=== PATIENT | male | born 1945 | race Caucasian/White ===

== ENCOUNTER 2023-04-16 19:15 | Inpatient (IN) | payer MEDICARE, OTHER ==
[~2023-04-16] VITALS: Ht 172.7 cm; Wt 77.6 kg
[2023-04-16] MEDS ORDERED: AZITHROMYCIN IV 500 MG in IV DEXTROSE 5% 250 ML IV ONE (19:45)
[2023-04-16] MEDS ORDERED: levoFLOXacin 750MG/D5W 150 ML IV ONE ×2 (19:45→20:05)
[2023-04-16] MEDS ORDERED: ACETAMINOPHEN 325 MG TABLET PO ONE (19:45)
[2023-04-16] MEDS ORDERED: IV NORMAL SALINE 1000 ML BAG IV ONE (19:45)
[2023-04-16 20:04] LABS: BASOPHILS # (AUTO) 0.1 K/UL (0.0-0.2); BASOPHILS % (AUTO) 0.4 % (0.0-2.0); EOSINOPHILS # (AUTO) 0.2 K/uL (0.0-0.7); EOSINOPHILS % (AUTO) 1.7 % (0.0-7.0); HEMOGLOBIN 12.5 g/dL (12.5-16.3); LYMPHOCYTES % (AUTO) 8.5 % (20.5-51.5); MEAN CORPUSCULAR HGB CONC 34 g/dL (32.5-36.3); MEAN CORPUSCULAR VOLUME 95.1 fL (73.0-96.2); MONOCYTES # (AUTO) 0.8 K/uL (0.1-1.30); MONOCYTES % (AUTO) 6.5 % (0.0-11.0); NEUTROPHILS # (AUTO) 10.2 K/uL (1.8-8.9); NEUTROPHILS % (AUTO) 82.9 % (38.5-71.5); PLATELET COUNT (AUTO) 172 K/uL (152-348); RED BLOOD CELL COUNT(AUTO) 3.89 MIL/uL (4.06-5.63); RED CELL DISTRIBUTION WIDTH 13.8 % (12.1-16.2); WHITE BLOOD COUNT (AUTO) 12.3 K/uL (3.6-10.2)
[2023-04-16] MEDS ORDERED: ACETAMINOPHEN ES 500 MG TABLET ONE (20:05)
[2023-04-16] MEDS ORDERED: AZITHROMYCIN 500MG/ D5W 250ML IVPB **ER PYXIS ONLY IV ONE (20:05)
[2023-04-16 20:10] LABS: DIFFERENTIAL COMMENT 1
[2023-04-16 20:27] LABS: ALANINE AMINOTRANSFERASE 46 U/L (16-63); ALBUMIN 4.1 g/dL (3.4-5.0); ALKALINE PHOSPHATASE 59 U/L (50-136); ASPARTATE AMINOTRANSFERASE 22 U/L (15-37); BILIRUBIN,DIRECT 0.2 mg/dL (0.0-0.2); BILIRUBIN,TOTAL 0.7 mg/dL (0.2-1.0); CARBON DIOXIDE 24 mmol/L (21-32); CHLORIDE 102 mmol/L (98-107); CREATININE 3.5 mg/dL (0.6-1.3); GLUCOSE 97 mg/dL (74-106); POTASSIUM 5.9 mmol/L (3.5-5.1); SODIUM SERUM 139 mmol/L (136-145); TOTAL PROTEIN, SERUM 8.1 g/dL (6.4-8.2); UREA NITROGEN, BLOOD 51 mg/dL (7-18)
[2023-04-16 20:33] LABS: CALCIUM 9.1 mg/dL (8.5-10.1)
[2023-04-16 20:59] LABS: *BILIRUBIN,URIN NEGATIVE (NEGATIVE); *CLARITY,URINE CLEAR (CLEAR); *COLOR,URINE YELLOW (YELLOW); *KETONES,URINE NEGATIVE (NEGATIVE); *PROTEIN,URINE NEGATIVE (NEGATIVE); *UROBILINOGEN,URINE 0.2 E.U./dl (NORMAL); LEUKOCYTE ESTERASE ,URINE NEGATIVE (NEGATIVE); NITRITE, URINE NEGATIVE (NEGATIVE); UGLUCOSE TRACE (NEGATIVE)
[2023-04-16] MEDS ORDERED: ALBUTEROL SULFATE 2.5 MG/3 ML NEBU NEB ONE (21:00)
[2023-04-16] MEDS ORDERED: SODIUM POLYSTYRENE SULFONATE 15 G/60 ML LIQUID UDC PO ONE (21:00)
[2023-04-16] MEDS ORDERED: SODIUM BICARBONATE 8.4% 50 MEQ/50 ML DISP.SYRIN IV ONE ×2 (21:00→21:10)
[2023-04-16 21:06] LABS: *BLOOD, URINE TRACE (NEGATIVE)
[2023-04-16] MEDS ORDERED: ALBUTEROL SULFATE 2.5 MG/3 ML NEBU ONE (21:07)
[2023-04-16 21:10] VITALS: O2SAT 97
[2023-04-16] MEDS ORDERED: SODIUM POLYSTYRENE SULFONATE 15 G/60 ML LIQUID UDC ONE (21:10)
[2023-04-16 21:19] LABS: BACTERIA,URINE NONE SEEN /HPF (NONE SEEN); SQUAMOUS EPITHELIAL CELL,UR FEW /HPF (NONE SEEN); WBC,URINE 0-3 /HPF (0-3)
[2023-04-16] MEDS ORDERED: LEVO112T2 PO (21:24)
[2023-04-16] MEDS ORDERED: ASPI81TA31 PO (21:24)
[2023-04-16] MEDS ORDERED: CARV6.252 PO (21:24)
[2023-04-16] MEDS ORDERED: MAGN400C PO (21:24)
[2023-04-16] MEDS ORDERED: DAPA5TAB PO (21:24)
[2023-04-16] MEDS ORDERED: SACU1TAB4 PO (21:24)
[2023-04-16] MEDS ORDERED: SPIR25TA6 PO (21:24)
[2023-04-16] MEDS ORDERED: SITA1TAB6 PO (21:24)
[2023-04-16] MEDS ORDERED: TADA5TAB2 PO (21:24)
[2023-04-16] MEDS ORDERED: VERQUVO PO (21:24)
[2023-04-16] MEDS ORDERED: AMIO200T5 PO (21:24)
[2023-04-16] MEDS ORDERED: FURO40TA5 PO (21:24)
[2023-04-16 21:40] VITALS: O2SAT 98
[2023-04-16 22:10] VITALS: O2SAT 99
[2023-04-16] MEDS ORDERED: REMEDY ESSENTIAL ZINC PASTE 113 GM TP PRN (23:45)
[2023-04-16] MEDS ORDERED: CEFTRIAXONE 1 G in IV DEXTROSE 5% 50 ML IV SCH (23:45)
[2023-04-16] MEDS ORDERED: ACETAMINOPHEN 325 MG TABLET PO PRN (23:45)
[2023-04-16] MEDS ORDERED: ONDANSETRON 4 MG/2 ML VIAL IV PRN (23:45)
[2023-04-17 00:30] VITALS: BP 88/50; TEMP 97.8
[2023-04-17] MEDS: ENOXAPARIN SODIUM 30 MG/0.3 ML DISP.SYRIN SQ SCH ×2 (01:26→21:18)
[2023-04-17] MEDS ORDERED: CEFTRIAXONE /D5W 50ML IVPB **ER PYXIS IV ONE (01:40)
[2023-04-17 04:00] VITALS: BP 95/45; TEMP 98.5
[2023-04-17] MEDS: PANTOPRAZOLE SODIUM 40 MG TABLET.DR PO SCH (06:25)
[2023-04-17] MEDS: LEVOTHYROXINE SODIUM 112 MCG TABLET PO SCH (06:26)
[2023-04-17 06:55] LABS: BASOPHILS % (AUTO) 0.2 % (0.0-2.0); EOSINOPHILS % (AUTO) 0.3 % (0.0-7.0); HEMATOCRIT 28.8 % (36.7-47.1); HEMOGLOBIN 9.8 g/dL (12.5-16.3); LYMPHOCYTES # (AUTO) 1.8 K/uL (0.8-4.8); LYMPHOCYTES % (AUTO) 12.7 % (20.5-51.5); MEAN CORPUSCULAR HEMOGLOBIN 32.5 uug (23.8-33.4); MEAN CORPUSCULAR HGB CONC 34 g/dL (32.5-36.3); MEAN CORPUSCULAR VOLUME 95.1 fL (73.0-96.2); MONOCYTES # (AUTO) 1.3 K/uL (0.1-1.30); MONOCYTES % (AUTO) 8.8 % (0.0-11.0); NEUTROPHILS # (AUTO) 11.1 K/uL (1.8-8.9); PLATELET COUNT (AUTO) 133 K/uL (152-348); RED BLOOD CELL COUNT(AUTO) 3.02 MIL/uL (4.06-5.63); RED CELL DISTRIBUTION WIDTH 13.8 % (12.1-16.2); WHITE BLOOD COUNT (AUTO) 14.3 K/uL (3.6-10.2)
[2023-04-17] MEDS ORDERED: FUROSEMIDE 40 MG TABLET PO ONE (07:00)
[2023-04-17 07:05] LABS: DIFFERENTIAL COMMENT 1
[2023-04-17 07:12] LABS: ALANINE AMINOTRANSFERASE 28 U/L (16-63); ALBUMIN 2.9 g/dL (3.4-5.0); ALKALINE PHOSPHATASE 38 U/L (50-136); ASPARTATE AMINOTRANSFERASE 5 U/L (15-37); BILIRUBIN,TOTAL 0.6 mg/dL (0.2-1.0); CALCIUM 8.3 mg/dL (8.5-10.1); CARBON DIOXIDE 23 mmol/L (21-32); CHLORIDE 108 mmol/L (98-107); CREATININE 3.2 mg/dL (0.6-1.3); GLUCOSE 102 mg/dL (74-106); PHOSPHOROUS 3.8 mg/dL (2.5-4.9); POTASSIUM 4.8 mmol/L (3.5-5.1); SODIUM SERUM 141 mmol/L (136-145); TOTAL PROTEIN, SERUM 5.9 g/dL (6.4-8.2); UREA NITROGEN, BLOOD 49 mg/dL (7-18)
[2023-04-17] MEDS ORDERED: FUROSEMIDE 40 MG TABLET PO SCH ×2 (09:00)
[2023-04-17] MEDS ORDERED: SACUBITRIL PO SCH (09:00)
[2023-04-17] MEDS ORDERED: VALSARTAN PO SCH (09:00)
[2023-04-17] MEDS ORDERED: METFORMIN HCL 500 MG TABLET PO SCH ×2 (09:00)
[2023-04-17] MEDS ORDERED: IV NORMAL SALINE 500 ML IV ONE (09:30)
[2023-04-17] MEDS ORDERED: SACUBITRIL/VALSARTAN 24 MG-26 TABLET PO ONE (09:30)
[2023-04-17] MEDS: ASPIRIN 81 MG TAB.CHEW PO SCH (09:40)
[2023-04-17] MEDS: CARVEDILOL 6.25 MG TABLET PO SCH ×2 (09:48→17:10)
[2023-04-17] MEDS: OFLOXACIN 0.3% OTIC DROP 5 ML BOTTLE RIGHT EAR SCH ×2 (09:49→21:16)
[2023-04-17 11:54] VITALS: BP 130/47; TEMP 98.4; O2SAT 94
[2023-04-17] MEDS ORDERED: DEXTROSE 50% 50 ML DISP.SYRIN IV PRN (13:30)
[2023-04-17] MEDS ORDERED: INSULIN REGULAR, HUMAN 300 UNIT/3 ML VIAL SQ PRN (13:30)
[2023-04-17 15:05] VITALS: BP 117/48; TEMP 98.4; O2SAT 93
[2023-04-17] MEDS: BLOOD SUGAR DIAGNOSTIC 1 EACH STRIP VI SCH ×2 (16:08→21:19)
[2023-04-17 20:00] VITALS: BP 128/54; TEMP 98.4; O2SAT 97
[2023-04-17] MEDS: AMIODARONE HCL 200 MG TABLET PO SCH (21:16)
[2023-04-18] VITALS: BP 145/65; TEMP 98.8; O2SAT 95
[2023-04-18] MEDS ORDERED: TEMAZEPAM 7.5 MG CAPSULE PO PRN (01:00)
[2023-04-18] MEDS: CEFTRIAXONE 1 G in IV DEXTROSE 5% 50 ML IV SCH (02:16)
[2023-04-18 04:00] VITALS: BP 119/59; TEMP 98.1; O2SAT 97
[2023-04-18] MEDS: LEVOTHYROXINE SODIUM 112 MCG TABLET PO SCH (06:11)
[2023-04-18] MEDS: PANTOPRAZOLE SODIUM 40 MG TABLET.DR PO SCH (06:11)
[2023-04-18] MEDS ORDERED: DEXTROSE 50% 50 ML DISP.SYRIN IV PRN (06:15)
[2023-04-18] MEDS ORDERED: INSULIN REGULAR, HUMAN 300 UNIT/3 ML VIAL SQ PRN (06:15)
[2023-04-18 06:23] LABS: *BILIRUBIN,URIN NEGATIVE (NEGATIVE); *CLARITY,URINE CLEAR (CLEAR); *COLOR,URINE YELLOW (YELLOW); *KETONES,URINE NEGATIVE (NEGATIVE); *PROTEIN,URINE 1+ (NEGATIVE); *UROBILINOGEN,URINE 0.2 E.U./dl (NORMAL); LEUKOCYTE ESTERASE ,URINE NEGATIVE (NEGATIVE); NITRITE, URINE NEGATIVE (NEGATIVE); UGLUCOSE NEGATIVE (NEGATIVE)
[2023-04-18] MEDS: BLOOD SUGAR DIAGNOSTIC 1 EACH STRIP VI SCH ×6 (06:31→20:53)
[2023-04-18 06:32] LABS: *BLOOD, URINE TRACE (NEGATIVE)
[2023-04-18 06:35] LABS: *CREATININE,URINE 99.2 mg/dL (30-125); *URINE TOTAL PROTEIN RANDOM 33.1 mg/dL (<150/24HR)
[2023-04-18 06:53] LABS: BASOPHILS % (AUTO) 0.5 % (0.0-2.0); EOSINOPHILS # (AUTO) 0.4 K/uL (0.0-0.7); HEMATOCRIT 30.3 % (36.7-47.1); HEMOGLOBIN 10.4 g/dL (12.5-16.3); LYMPHOCYTES # (AUTO) 1.7 K/uL (0.8-4.8); LYMPHOCYTES % (AUTO) 20.1 % (20.5-51.5); MEAN CORPUSCULAR HEMOGLOBIN 32.9 uug (23.8-33.4); MEAN CORPUSCULAR HGB CONC 34 g/dL (32.5-36.3); MEAN CORPUSCULAR VOLUME 95.8 fL (73.0-96.2); MONOCYTES # (AUTO) 0.7 K/uL (0.1-1.30); MONOCYTES % (AUTO) 8.4 % (0.0-11.0); NEUTROPHILS # (AUTO) 5.7 K/uL (1.8-8.9); PLATELET COUNT (AUTO) 140 K/uL (152-348); RED BLOOD CELL COUNT(AUTO) 3.16 MIL/uL (4.06-5.63); RED CELL DISTRIBUTION WIDTH 14.4 % (12.1-16.2); WHITE BLOOD COUNT (AUTO) 8.6 K/uL (3.6-10.2)
[2023-04-18 06:54] LABS: DIFFERENTIAL COMMENT 1
[2023-04-18 07:29] LABS: RBC,URINE 0-3 /HPF (0-3); WBC,URINE NONE SEEN /HPF (0-3)
[2023-04-18 09:09] LABS: ALANINE AMINOTRANSFERASE 35 U/L (16-63); ALBUMIN 2.9 g/dL (3.4-5.0); ALKALINE PHOSPHATASE 40 U/L (50-136); ASPARTATE AMINOTRANSFERASE 19 U/L (15-37); BILIRUBIN,TOTAL 0.5 mg/dL (0.2-1.0); CALCIUM 8.7 mg/dL (8.5-10.1); CARBON DIOXIDE 25 mmol/L (21-32); CHLORIDE 109 mmol/L (98-107); CREATINE KINASE, TOTAL 89 U/L (39-308); GLUCOSE 94 mg/dL (74-106); MAGNESIUM 1.9 mg/dL (1.8-2.4); PHOSPHOROUS 3.5 mg/dL (2.5-4.9); POTASSIUM 4.7 mmol/L (3.5-5.1); SODIUM SERUM 143 mmol/L (136-145); UREA NITROGEN, BLOOD 41 mg/dL (7-18)
[2023-04-18 09:11] LABS: IRON, SERUM 38 ug/dL (50-175)
[2023-04-18] MEDS: ASPIRIN 81 MG TAB.CHEW PO SCH (09:27)
[2023-04-18] MEDS: CARVEDILOL 6.25 MG TABLET PO SCH ×2 (09:29→17:39)
[2023-04-18 09:46] LABS: THYROID STIMULATING HORMONE 4.957 mIU/mL (0.358-3.740)
[2023-04-18] MEDS: OFLOXACIN 0.3% OTIC DROP 5 ML BOTTLE RIGHT EAR SCH ×2 (10:37→21:00)
[2023-04-18 11:19] VITALS: BP 122/57; TEMP 97.8; O2SAT 100
[2023-04-18] MEDS ORDERED: AZITHROMYCIN 250 MG TABLET PO SCH (12:30)
[2023-04-18] MEDS: DOXYCYCLINE HYCLATE 100 MG TABLET PO SCH ×2 (14:09→20:53)
[2023-04-18 15:00] VITALS: BP 116/45; TEMP 98.2; O2SAT 96
[2023-04-18 20:00] VITALS: BP_SYST 119; BP_SYST 144; BP_DIAS 59; BP_DIAS 68; TEMP 98.1; TEMP 98.5; O2SAT 96; O2SAT 97
[2023-04-18] MEDS: AMIODARONE HCL 200 MG TABLET PO SCH (20:53)
[2023-04-18] MEDS: ENOXAPARIN SODIUM 30 MG/0.3 ML DISP.SYRIN SQ SCH (20:59)
[2023-04-19] VITALS: BP 138/61; TEMP 98; O2SAT 98
[2023-04-19] MEDS: CEFTRIAXONE 1 G in IV DEXTROSE 5% 50 ML IV SCH (01:09)
[2023-04-19 04:00] VITALS: BP 143/65; TEMP 98.3; O2SAT 96
[2023-04-19 05:08] LABS: PTH, INTACT 56 pg/mL (15-65)
[2023-04-19] MEDS: LEVOTHYROXINE SODIUM 112 MCG TABLET PO SCH (06:06)
[2023-04-19] MEDS: PANTOPRAZOLE SODIUM 40 MG TABLET.DR PO SCH (06:06)
[2023-04-19] MEDS: BLOOD SUGAR DIAGNOSTIC 1 EACH STRIP VI SCH ×3 (06:32→11:50)
[2023-04-19 06:42] LABS: BASOPHILS # (AUTO) 0.1 K/UL (0.0-0.2); BASOPHILS % (AUTO) 1.8 % (0.0-2.0); EOSINOPHILS # (AUTO) 0.5 K/uL (0.0-0.7); EOSINOPHILS % (AUTO) 6.9 % (0.0-7.0); HEMOGLOBIN 10.3 g/dL (12.5-16.3); LYMPHOCYTES # (AUTO) 1.7 K/uL (0.8-4.8); MEAN CORPUSCULAR HEMOGLOBIN 32.5 uug (23.8-33.4); MEAN CORPUSCULAR HGB CONC 34 g/dL (32.5-36.3); MEAN CORPUSCULAR VOLUME 94.6 fL (73.0-96.2); MONOCYTES # (AUTO) 0.5 K/uL (0.1-1.30); MONOCYTES % (AUTO) 7.3 % (0.0-11.0); NEUTROPHILS # (AUTO) 4.3 K/uL (1.8-8.9); PLATELET COUNT (AUTO) 157 K/uL (152-348); RED BLOOD CELL COUNT(AUTO) 3.17 MIL/uL (4.06-5.63); RED CELL DISTRIBUTION WIDTH 13.7 % (12.1-16.2); WHITE BLOOD COUNT (AUTO) 7.2 K/uL (3.6-10.2)
[2023-04-19 06:43] LABS: DIFFERENTIAL COMMENT 1
[2023-04-19 07:16] LABS: CALCIUM 8.2 mg/dL (8.5-10.1); CARBON DIOXIDE 23 mmol/L (21-32); CHLORIDE 109 mmol/L (98-107); CREATININE 2.3 mg/dL (0.6-1.3); GLUCOSE 103 mg/dL (74-106); MAGNESIUM 1.7 mg/dL (1.8-2.4); PHOSPHOROUS 3.6 mg/dL (2.5-4.9); POTASSIUM 4.8 mmol/L (3.5-5.1); SODIUM SERUM 138 mmol/L (136-145); UREA NITROGEN, BLOOD 36 mg/dL (7-18)
[2023-04-19] MEDS: ASPIRIN 81 MG TAB.CHEW PO SCH (09:31)
[2023-04-19] MEDS: DOXYCYCLINE HYCLATE 100 MG TABLET PO SCH (09:31)
[2023-04-19] MEDS: CARVEDILOL 6.25 MG TABLET PO SCH (09:32)
[2023-04-19] MEDS: OFLOXACIN 0.3% OTIC DROP 5 ML BOTTLE RIGHT EAR SCH (09:36)
[2023-04-19] MEDS ORDERED: MAGNESIUM OXIDE 400 MG TABLET PO ONE (10:30)
[2023-04-19 11:24] VITALS: BP 144/75; TEMP 97.8; O2SAT 97
[2023-04-19] MEDS ORDERED: DAPA10TA PO (12:43)
[2023-04-19] MEDS ORDERED: DOXY100T2 PO (12:43)
[2023-04-19] MEDS ORDERED: CARV12.5 PO (12:43)
[2023-04-19 13:06] LABS: A/G RATIO 1.3 (0.7-1.7); ALBUMIN 3.1 g/dL (2.9-4.4); ALPHA-1-GLOBULIN 0.2 g/dL (0.0-0.4); ALPHA-2-GLOBULIN 0.8 g/dL (0.4-1.0); BETA GLOBULIN 0.6 g/dL (0.7-1.3); GAMMA GLOBULIN 0.6 g/dL (0.4-1.8); GLOBULIN, TOTAL 2.3 g/dL (2.2-3.9); M-SPIKE Not Observed g/dL (Not Observed)
== END 2023-04-19 14:00 | disposition home or self-care (01) | DRG 871 ==
LOC: ER 19:22 → TELE3 21:32 → MEDSURG3 04-19 11:24
PROVIDERS: ADMIT Nurse Practitioner Acute Care; ATTEND Nurse Practitioner Acute Care
DX: A41.9 Sepsis, unspecified organism (principal); I21.A1 Myocardial infarction type 2; J15.9 Unspecified bacterial pneumonia; N17.0 Acute kidney failure with tubular necrosis; K92.2 Gastrointestinal hemorrhage, unspecified; I50.22 Chronic systolic (congestive) heart failure; J44.0 Chronic obstructive pulmonary disease with (acute) lower respiratory infection; I13.0 Hypertensive heart and chronic kidney disease with heart failure and stage 1 through stage 4 chronic kidney disease, or unspecified chronic kidney disease; I42.8 Other cardiomyopathies; E87.5 Hyperkalemia; B34.9 Viral infection, unspecified; E11.22 Type 2 diabetes mellitus with diabetic chronic kidney disease; E03.9 Hypothyroidism, unspecified; E78.5 Hyperlipidemia, unspecified; I48.0 Paroxysmal atrial fibrillation; Z20.822 Contact with and (suspected) exposure to COVID-19; Z79.01 Long term (current) use of anticoagulants; Z79.4 Long term (current) use of insulin; Z79.84 Long term (current) use of oral hypoglycemic drugs; Z87.891 Personal history of nicotine dependence; Z95.810 Presence of automatic (implantable) cardiac defibrillator; I25.10 Atherosclerotic heart disease of native coronary artery without angina pectoris; N18.9 Chronic kidney disease, unspecified; K80.20 Calculus of gallbladder without cholecystitis without obstruction; N20.0 Calculus of kidney; T46.2X5A Adverse effect of other antidysrhythmic drugs, initial encounter; Y92.009 Unspecified place in unspecified non-institutional (private) residence as the place of occurrence of the external cause
CPT/HCPCS: 36415; 71045; 76770; 83550; 83605; 83735; 83970; 84100; 84155; 84165; 84300; 84443; 84484; 85025; 85730; 87040; 93005; 93307; A9150; G0378; J0456; J0696; J1650; J1815; J1956; J2405; J3490; J7040

== ENCOUNTER 2024-09-16 20:05 | Inpatient (IN) | payer MEDICARE, OTHER ==
[~2024-09-16] VITALS: Ht 172.7 cm; Wt 81.0 kg
[~2024-09-16 20:05] MED LIST: CARV12.5 PO; DAPA10TA PO; DOXY100T2 PO; FURO40TA5 PO; LEVO112T2 PO; MAGN400C PO; SACU1TAB4 PO; SITA1TAB6 PO; TADA5TAB2 PO; VERQUVO PO
[2024-09-16] MEDS ORDERED: FUROSEMIDE 40 MG/4 ML VIAL ONE (20:26)
[2024-09-16] MEDS: FUROSEMIDE 20 MG/2 ML VIAL IVP ONE (20:30)
[2024-09-16] MEDS ORDERED: NITROGLYCERIN IV 250 ML IV ONE (20:30)
[2024-09-16] MEDS: MORPHINE SULFATE 2 MG/1 ML DISP.SYRIN IV ONE (20:30)
[2024-09-16] MEDS: NITROGLYCERIN OINT 1 GM PACKET TP ONE (20:45)
[2024-09-16] MEDS: AZITHROMYCIN IV 500 MG in IV DEXTROSE 5% 250 ML IV ONE (20:45)
[2024-09-16] MEDS ORDERED: levoFLOXacin 750 MG/D5W 150 ML PIGGYBACK IV ONE (20:45)
[2024-09-16] MEDS ORDERED: NITROGLYCERIN ONE (20:46)
[2024-09-16] MEDS ORDERED: MORPHINE SULFATE 2 MG/1 ML DISP.SYRIN ONE (20:47)
[2024-09-16 20:49] LABS: BASOPHILS # (AUTO) 0.1 K/UL (0.0-0.2); BASOPHILS % (AUTO) 0.9 % (0.0-2.0); EOSINOPHILS # (AUTO) 0.4 K/uL (0.0-0.7); EOSINOPHILS % (AUTO) 4.7 % (0.0-7.0); HEMOGLOBIN 13.9 g/dL (12.5-16.3); LYMPHOCYTES # (AUTO) 2.1 K/uL (0.8-4.8); LYMPHOCYTES % (AUTO) 27.4 % (20.5-51.5); MEAN CORPUSCULAR HEMOGLOBIN 30.3 uug (23.8-33.4); MEAN CORPUSCULAR HGB CONC 33 g/dL (32.5-36.3); MEAN CORPUSCULAR VOLUME 91.7 fL (73.0-96.2); MONOCYTES # (AUTO) 0.5 K/uL (0.1-1.30); MONOCYTES % (AUTO) 7.1 % (0.0-11.0); NEUTROPHILS # (AUTO) 4.5 K/uL (1.8-8.9); NEUTROPHILS % (AUTO) 59.9 % (38.5-71.5); PLATELET COUNT (AUTO) 171 K/uL (152-348); RED BLOOD CELL COUNT(AUTO) 4.58 MIL/uL (4.06-5.63); RED CELL DISTRIBUTION WIDTH 15.2 % (12.1-16.2); WHITE BLOOD COUNT (AUTO) 7.6 K/uL (3.6-10.2)
[2024-09-16 20:53] LABS: DIFFERENTIAL COMMENT 1
[2024-09-16] MEDS ORDERED: NITROGLYCERIN OINT 1 GM PACKET TP ONE (20:53)
[2024-09-16 20:57] LABS: CALCIUM 8.6 mg/dL (8.5-10.1); CARBON DIOXIDE 26 mmol/L (21-32); CHLORIDE 107 mmol/L (98-107); CREATININE 1.6 mg/dL (0.6-1.3); GLUCOSE 141 mg/dL (74-106); POTASSIUM 3.7 mmol/L (3.5-5.1); SODIUM SERUM 145 mmol/L (136-145); UREA NITROGEN, BLOOD 22 mg/dL (7-18)
[2024-09-16 21:10] LABS: ALANINE AMINOTRANSFERASE 26 U/L (16-63); ALBUMIN 3.4 g/dL (3.4-5.0); ALKALINE PHOSPHATASE 88 U/L (50-136); ASPARTATE AMINOTRANSFERASE 14 U/L (15-37); BILIRUBIN,DIRECT 0.2 mg/dL (0.0-0.2); BILIRUBIN,TOTAL 0.8 mg/dL (0.2-1.0); NT-PRO BNP 7787 pg/mL (0-125)
[2024-09-16] MEDS ORDERED: AZITHROMYCIN 500MG/ D5W 250ML IVPB **ER PYXIS ONLY IV ONE (21:30)
[2024-09-16 23:30] LABS: *BILIRUBIN,URIN NEGATIVE (NEGATIVE); *BLOOD, URINE NEGATIVE (NEGATIVE); *CLARITY,URINE CLEAR (CLEAR); *COLOR,URINE YELLOW (YELLOW); *KETONES,URINE NEGATIVE (NEGATIVE); *UROBILINOGEN,URINE 0.2 E.U./dl (NORMAL); LEUKOCYTE ESTERASE ,URINE NEGATIVE (NEGATIVE); NITRITE, URINE NEGATIVE (NEGATIVE); PH,URINE 5.5 (5.0-8.0)
[2024-09-16 23:33] LABS: UGLUCOSE 2+ (NEGATIVE)
[2024-09-16 23:52] LABS: *PROTEIN,URINE 1+ (NEGATIVE)
[2024-09-16 23:58] LABS: BACTERIA,URINE NONE SEEN /HPF (NONE SEEN); RBC,URINE 0-3 /HPF (0-3); WBC,URINE NONE SEEN /HPF (0-3)
[2024-09-16 23:59] LABS: SQUAMOUS EPITHELIAL CELL,UR FEW /HPF (NONE SEEN)
[2024-09-17] VITALS (8 sets, daily range): BP systolic 122–146; BP diastolic 60–76; TEMP 97.1–97.9; O2SAT 91–100
[2024-09-17] MEDS ORDERED: MAGNESIUM HYDROXIDE 30 ML LIQUID UDC PO PRN
[2024-09-17] MEDS ORDERED: AZTREONAM 1 G VIAL ONE (03:02)
[2024-09-17] MEDS: AZTREONAM 1 G in IV NORMAL SALINE 50 ML IV SCH (03:58)
[2024-09-17] MEDS: FUROSEMIDE 40 MG/4 ML VIAL IV ONE ×3 (05:00→12:32)
[2024-09-17] MEDS ORDERED: LEVOTHYROXINE SODIUM 112 MCG TABLET PO SCH ×2 (07:00→09:00)
[2024-09-17 07:27] LABS: BASOPHILS # (AUTO) 0.1 K/UL (0.0-0.2); EOSINOPHILS # (AUTO) 0.3 K/uL (0.0-0.7); EOSINOPHILS % (AUTO) 4.5 % (0.0-7.0); HEMATOCRIT 36.2 % (36.7-47.1); HEMOGLOBIN 12.4 g/dL (12.5-16.3); LYMPHOCYTES # (AUTO) 1.8 K/uL (0.8-4.8); MEAN CORPUSCULAR HEMOGLOBIN 31.2 uug (23.8-33.4); MEAN CORPUSCULAR HGB CONC 34 g/dL (32.5-36.3); MEAN CORPUSCULAR VOLUME 91.1 fL (73.0-96.2); MONOCYTES # (AUTO) 0.5 K/uL (0.1-1.30); MONOCYTES % (AUTO) 8.4 % (0.0-11.0); NEUTROPHILS # (AUTO) 3.1 K/uL (1.8-8.9); NEUTROPHILS % (AUTO) 54.1 % (38.5-71.5); PLATELET COUNT (AUTO) 132 K/uL (152-348); RED BLOOD CELL COUNT(AUTO) 3.97 MIL/uL (4.06-5.63); RED CELL DISTRIBUTION WIDTH 14.9 % (12.1-16.2); WHITE BLOOD COUNT (AUTO) 5.8 K/uL (3.6-10.2)
[2024-09-17 07:43] LABS: CARBON DIOXIDE 26 mmol/L (21-32); CHLORIDE 112 mmol/L (98-107); CREATININE 1.4 mg/dL (0.6-1.3); GLUCOSE 112 mg/dL (74-106); POTASSIUM 3.5 mmol/L (3.5-5.1); SODIUM SERUM 149 mmol/L (136-145); UREA NITROGEN, BLOOD 22 mg/dL (7-18)
[2024-09-17 07:51] LABS: DIFFERENTIAL COMMENT 1
[2024-09-17] MEDS: DAPAGLIFLOZIN PROPANEDIOL 10 MG TABLET PO SCH (08:47)
[2024-09-17] MEDS: SACUBITRIL/VALSARTAN 24 MG-26 TABLET PO ONE (08:49)
[2024-09-17] MEDS: CARVEDILOL 12.5 MG TABLET PO SCH (08:50)
[2024-09-17] MEDS ORDERED: Sitagliptin Phos/Metformin Hcl (Janumet 50-1,000 Mg Tabl PO SCH (09:00)
[2024-09-17] MEDS ORDERED: Tadalafil (Cialis) 5 MG) PO SCH (09:00)
[2024-09-17] MEDS ORDERED: AZTREONAM 1 G in IV NORMAL SALINE 50 ML IV SCH ×2 (12:00)
[2024-09-17] MEDS: MEROPENEM 1 G in IV NORMAL SALINE 100 ML IV SCH (12:28)
[2024-09-17] MEDS ORDERED: SACUBITRIL PO SCH (17:00)
[2024-09-17] MEDS ORDERED: VALSARTAN PO SCH (17:00)
[2024-09-18] MEDS: FUROSEMIDE 40 MG/4 ML VIAL IV ONE (06:37)
[2024-09-18 07:08] LABS: BASOPHILS # (AUTO) 0.1 K/UL (0.0-0.2); BASOPHILS % (AUTO) 1.5 % (0.0-2.0); EOSINOPHILS # (AUTO) 0.5 K/uL (0.0-0.7); EOSINOPHILS % (AUTO) 6.7 % (0.0-7.0); HEMATOCRIT 38.4 % (36.7-47.1); HEMOGLOBIN 13.2 g/dL (12.5-16.3); LYMPHOCYTES # (AUTO) 2.1 K/uL (0.8-4.8); LYMPHOCYTES % (AUTO) 31.2 % (20.5-51.5); MEAN CORPUSCULAR HGB CONC 34 g/dL (32.5-36.3); MEAN CORPUSCULAR VOLUME 90.2 fL (73.0-96.2); MONOCYTES # (AUTO) 0.7 K/uL (0.1-1.30); MONOCYTES % (AUTO) 9.9 % (0.0-11.0); NEUTROPHILS # (AUTO) 3.5 K/uL (1.8-8.9); NEUTROPHILS % (AUTO) 50.7 % (38.5-71.5); PLATELET COUNT (AUTO) 155 K/uL (152-348); RED BLOOD CELL COUNT(AUTO) 4.26 MIL/uL (4.06-5.63); RED CELL DISTRIBUTION WIDTH 15.1 % (12.1-16.2); WHITE BLOOD COUNT (AUTO) 6.9 K/uL (3.6-10.2)
[2024-09-18 07:18] LABS: DIFFERENTIAL COMMENT 1
[2024-09-18 07:49] LABS: ALANINE AMINOTRANSFERASE 32 U/L (16-63); ALBUMIN 3.1 g/dL (3.4-5.0); ALKALINE PHOSPHATASE 80 U/L (50-136); ASPARTATE AMINOTRANSFERASE 25 U/L (15-37); CALCIUM 8.4 mg/dL (8.5-10.1); CARBON DIOXIDE 27 mmol/L (21-32); CHLORIDE 105 mmol/L (98-107); CHOLESTEROL 161 mg/dL (<200); CREATININE 1.6 mg/dL (0.6-1.3); GLUCOSE 119 mg/dL (74-106); HDL CHOLESTEROL 47 mg/dL (40-60); MAGNESIUM 1.9 mg/dL (1.8-2.4); PHOSPHOROUS 4.4 mg/dL (2.5-4.9); SODIUM SERUM 142 mmol/L (136-145); TOTAL PROTEIN, SERUM 6.7 g/dL (6.4-8.2); TRIGLYCERIDES 191 MG/DL (30-150); UREA NITROGEN, BLOOD 29 mg/dL (7-18)
[2024-09-18 08:10] VITALS: BP 135/66; TEMP 97.2; O2SAT 95
[2024-09-18] MEDS ORDERED: FUROSEMIDE 40 MG TABLET PO SCH (09:00)
[2024-09-18 09:02] LABS: THYROID STIMULATING HORMONE 3.584 mIU/mL (0.358-3.740)
[2024-09-18 09:50] VITALS: O2SAT 98
[2024-09-18 10:44] VITALS: BP 129/72; TEMP 98.2; O2SAT 98
[2024-09-18] MEDS ORDERED: LEVO137T24 PO (11:44)
[2024-09-18] MEDS: LEVOTHYROXINE SODIUM 137 MCG TABLET PO SCH (13:17)
[2024-09-18 14:55] VITALS: BP 120/62; TEMP 98.4; O2SAT 97
[2024-09-18 19:30] VITALS: BP 125/67; TEMP 98; O2SAT 97
[2024-09-19] VITALS (8 sets, daily range): BP systolic 128–154; BP diastolic 62–78; TEMP 97–98.3; O2SAT 95–99
[2024-09-19] MEDS: FUROSEMIDE 40 MG TABLET PO SCH (09:33)
[2024-09-19] MEDS: SACUBITRIL/VALSARTAN 24 MG-26 TABLET PO ONE (13:22)
[2024-09-19] MEDS ORDERED: SITA50TA PO (13:23)
[2024-09-19] MEDS: JANUVIA 50 MG PO SCH (14:16)
[2024-09-19] MEDS: [UNRECOGNIZED DRUG - OTHER] PO SCH (14:19)
[2024-09-19] MEDS ORDERED: ACETAMINOPHEN 325 MG TABLET PO PRN (14:45)
[2024-09-19] MEDS ORDERED: ENOXAPARIN SODIUM 30 MG/0.3 ML DISP.SYRIN SUBCUT SCH (14:45)
[2024-09-19] MEDS ORDERED: ALBUTEROL SULFATE 2.5 MG/ 0.5 ML NEBU NEB PRN (14:45)
[2024-09-19] MEDS: ENOXAPARIN SODIUM 40 MG/0.4 ML DISP.SYRIN SQ SCH (16:29)
[2024-09-20] VITALS (7 sets, daily range): BP systolic 135–151; BP diastolic 62–76; TEMP 97.5–98.5; O2SAT 95–98
[2024-09-20] MEDS: PANTOPRAZOLE SODIUM 40 MG TABLET.DR PO SCH (06:34)
[2024-09-20 07:13] LABS: BASOPHILS # (AUTO) 0.1 K/UL (0.0-0.2); BASOPHILS % (AUTO) 0.9 % (0.0-2.0); EOSINOPHILS # (AUTO) 0.4 K/uL (0.0-0.7); EOSINOPHILS % (AUTO) 5.7 % (0.0-7.0); HEMATOCRIT 36.2 % (36.7-47.1); HEMOGLOBIN 12.6 g/dL (12.5-16.3); LYMPHOCYTES # (AUTO) 1.8 K/uL (0.8-4.8); LYMPHOCYTES % (AUTO) 28.2 % (20.5-51.5); MEAN CORPUSCULAR HEMOGLOBIN 31.2 uug (23.8-33.4); MEAN CORPUSCULAR HGB CONC 35 g/dL (32.5-36.3); MEAN CORPUSCULAR VOLUME 89.8 fL (73.0-96.2); MONOCYTES # (AUTO) 0.7 K/uL (0.1-1.30); MONOCYTES % (AUTO) 10.5 % (0.0-11.0); NEUTROPHILS # (AUTO) 3.6 K/uL (1.8-8.9); NEUTROPHILS % (AUTO) 54.7 % (38.5-71.5); PLATELET COUNT (AUTO) 153 K/uL (152-348); RED BLOOD CELL COUNT(AUTO) 4.03 MIL/uL (4.06-5.63); RED CELL DISTRIBUTION WIDTH 14.7 % (12.1-16.2); WHITE BLOOD COUNT (AUTO) 6.5 K/uL (3.6-10.2)
[2024-09-20 07:26] LABS: DIFFERENTIAL COMMENT 1
[2024-09-20 07:35] LABS: CALCIUM 8.5 mg/dL (8.5-10.1); CARBON DIOXIDE 29 mmol/L (21-32); CHLORIDE 106 mmol/L (98-107); CREATININE 1.7 mg/dL (0.6-1.3); GLUCOSE 104 mg/dL (74-106); PHOSPHOROUS 3.5 mg/dL (2.5-4.9); POTASSIUM 3.3 mmol/L (3.5-5.1); SODIUM SERUM 143 mmol/L (136-145); UREA NITROGEN, BLOOD 34 mg/dL (7-18)
[2024-09-20 09:13] LABS: ABG BASE EXCESS 2.4 mmol/L (-2.0-3.0); ABG HCO3 26.5 mmol/L (21.0-28.0); ABG PCO2 39.5 mmHg (35.0-48.0); ABG PH 7.445 (7.350-7.450); ABG PO2 71.7 mmHg (83.0-108.0); ABG SITE LEFT RADIAL; ABG TOTAL HEMOGLOBIN 13.3 G/dL (13.5-17.5); MetHb 0.1 % (0.0-1.5); O2Hb 93.9 % (94.0-98.0)
[2024-09-20] MEDS: POTASSIUM CHLORIDE 10 MEQ TAB.PRT.SR PO ONE (13:06)
[2024-09-20 13:46] LABS: C-REACTIVE PROTEIN < 0.10 mg/dL (0.00-0.30)
[2024-09-21 07:45] VITALS: BP 127/73; TEMP 98.1; O2SAT 100
[2024-09-21 08:00] VITALS: O2SAT 98
[2024-09-21 09:02] VITALS: BP 127/73
[2024-09-21] MEDS: JANUVIA 50 MG PO SCH (09:04)
[2024-09-21] MEDS: ENOXAPARIN SODIUM 30 MG/0.3 ML DISP.SYRIN SUBCUT SCH (09:22)
[2024-09-21] MEDS ORDERED: MULT-594 PO (13:39)
[2024-09-21] MEDS ORDERED: ALBU2.5V13 NEB (13:39)
== END 2024-09-21 15:00 | disposition home health service (06) | DRG 177 ==
LOC: ER 20:05 → TELE3 09-17 → TELE-TD3 09-17 05:25 → TELE3 09-17 10:35
PROVIDERS: ADMIT Nurse Practitioner Acute Care; ATTEND Internal Medicine
PROC: 5A09357 Assistance with Respiratory Ventilation, Less than 24 Consecutive Hours, Continuous Positive Airway Pressure (ICD-10-PCS; principal; 2024-09-17)
DX: J15.69 Pneumonia due to other Gram-negative bacteria (principal); I50.23 Acute on chronic systolic (congestive) heart failure; J96.21 Acute and chronic respiratory failure with hypoxia; N17.0 Acute kidney failure with tubular necrosis; I13.0 Hypertensive heart and chronic kidney disease with heart failure and stage 1 through stage 4 chronic kidney disease, or unspecified chronic kidney disease; J44.0 Chronic obstructive pulmonary disease with (acute) lower respiratory infection; I42.8 Other cardiomyopathies; Z85.850 Personal history of malignant neoplasm of thyroid; E89.0 Postprocedural hypothyroidism; Z90.49 Acquired absence of other specified parts of digestive tract; E66.9 Obesity, unspecified; Z68.27 Body mass index [BMI] 27.0-27.9, adult; N40.0 Benign prostatic hyperplasia without lower urinary tract symptoms; Z87.891 Personal history of nicotine dependence; Z88.1 Allergy status to other antibiotic agents; Z99.81 Dependence on supplemental oxygen; I48.0 Paroxysmal atrial fibrillation; N18.2 Chronic kidney disease, stage 2 (mild); I44.7 Left bundle-branch block, unspecified; Z95.810 Presence of automatic (implantable) cardiac defibrillator; Z79.84 Long term (current) use of oral hypoglycemic drugs; K40.20 Bilateral inguinal hernia, without obstruction or gangrene, not specified as recurrent; E78.5 Hyperlipidemia, unspecified; E11.22 Type 2 diabetes mellitus with diabetic chronic kidney disease; Z79.890 Hormone replacement therapy; Z79.899 Other long term (current) drug therapy; Z98.42 Cataract extraction status, left eye; Z98.41 Cataract extraction status, right eye; Z86.59 Personal history of other mental and behavioral disorders
CPT/HCPCS: 36415; 36600; 71045; 83605; 83735; 84100; 84443; 84484; 85025; 85730; 86140; 87040; 94660; A4606; A4663; G0378; J0456; J1650; J1940; J2185; J2270; J3490; J7050